=== PATIENT | female | born 1995 | race Caucasian/White ===

== ENCOUNTER → 2020-09-08 09:42 | Outpatient (CLI) | payer OTHER, MEDICAID, SELFPAY ==
[2020-09-08 11:07] LABS: Absolute Lymphocyte Count 2.94 X10^3/uL (0.83-4.51); Absolute Neutrophil Count 6.3 X10^3/uL (2.0-7.7); Basophil# 0.02 X10^3/uL; Basophil% 0.2 % (0-1); Eosinophil# 0.12 X10^3/uL; Eosinophils% 1.2 % (0-5); Hematocrit 42.7 % (37-47); Hemoglobin 14.3 g/dL (12.0-15.0); Lymphocyte # 2.94 X10^3/ul (0.83-4.51); Lymphocyte % 28.9 % (19-41); Mean Corp Hgb Conc 33.5 g/dL (32-36); Mean Corpuscular Hgb 27.1 pg (27.0-32.0); Mean Platelet Vol. 9.6 fl (6.2-12.0); Monocyte# 0.72 X10^3/uL; Monocyte% 7.1 % (0-10); NRBC Flagged by Analyzer 0 % (0-5); Neutrophil # 6.33 X10^3/uL (2.7-7.7); Neutrophil % 62.2 % (47-70); Platelet Count 295 K/mm3 (150-450); RBC Distribution Width CV 13.6 % (11.6-14.6); RBC Distribution Width SD 39.6 fl (35.1-43.9); Red Blood Count 5.27 M/mm3 (4.2-5.4); White Blood Count 10.2 K/mm3 (4.4-11.0)
[2020-09-08 11:53] LABS: HIV - WCH Non-Reactive (Nonreactive); Hepatitis B Surface Antigen Non-Reactive (Nonreactive); Hepatitis C Antibody Non-Reactive (Nonreactive); Rubella IgG Reactive (Nonreactive); Syphilis Antibodies Non-reactive
[2020-09-10 05:07] LABS: Chlamydia By Nucleic Acid AMP Negative (Negative)
[2020-09-10 07:36] LABS: Gonococcus By Nucleic Acid AMP Negative (Negative)
[2020-09-10 16:42] LABS: HPV APTIMA, High Risk Negative (Negative)
[2020-09-10 16:43] LABS: HPV Reflexed? YES, CHARGE PATIENT
== END ==
PROVIDERS: Visit Provider Obstetrics & Gynecology
DX: Z12.4 Encounter for screening for malignant neoplasm of cervix (principal); Z11.3 Encounter for screening for infections with a predominantly sexual mode of transmission; Z32.01 Encounter for pregnancy test, result positive; Z34.81 Encounter for supervision of other normal pregnancy, first trimester
CPT/HCPCS: 36415; 85025; 86703; 86762; 86780; 86803; 87086; 87088; 87340; 87491; 87591; 87624; 88175; G0145

== ENCOUNTER → 2021-01-25 13:18 | Outpatient (CLI) | payer OTHER, MEDICAID, SELFPAY ==
[2021-01-25 15:25] LABS: Hematocrit 37.1 % (37-47); Hemoglobin 12.2 g/dL (12.0-15.0); Mean Corp Hgb Conc 32.9 g/dL (32-36); Mean Corpuscular Hgb 28.2 pg (27.0-32.0); Mean Corpuscular Volume 85.7 fL (81-99); Mean Platelet Vol. 10.4 fl (6.2-12.0); Platelet Count 272 K/mm3 (150-450); RBC Distribution Width CV 14.9 % (11.6-14.6); RBC Distribution Width SD 46.8 fl (35.1-43.9); Red Blood Count 4.33 M/mm3 (4.2-5.4)
[2021-01-25 15:36] LABS: Glucose Challenge Gest 1H 50g 69 mg/dL (70-140)
== END ==
PROVIDERS: Visit Provider Obstetrics & Gynecology
DX: Z34.82 Encounter for supervision of other normal pregnancy, second trimester (principal); R30.0 Dysuria
CPT/HCPCS: 36415; 82950; 85027; 87086; 87088

== ENCOUNTER 2021-04-12 14:40 | Outpatient (CLI) | payer OTHER, MEDICAID, SELFPAY | END 2021-04-12 23:59 | disposition home or self-care (01) | LOC: LABSPEC 14:43 | PROVIDERS: Visit Provider Obstetrics & Gynecology | DX: Z36.85 Encounter for antenatal screening for Streptococcus B (principal) | CPT/HCPCS: 87081 ==

== ENCOUNTER 2021-04-26 14:15 | Observation (INO) | payer OTHER, MEDICAID, SELFPAY ==
[2021-04-26] VITALS (9 sets, daily range): BP systolic 119–153; BP diastolic 75–92; PULSE 91–121; TEMP 36.7–37.2; O2SAT 96–98; BMI 31.4
[2021-04-26] MEDS: Lactated Ringers 1,000 ML 50 ML IV (15:20)
[2021-04-26 15:47] LABS: Absolute Lymphocyte Count 2.25 X10^3/uL (0.83-4.51); Absolute Neutrophil Count 7.5 X10^3/uL (2.0-7.7); Basophil# 0.02 X10^3/uL; Basophil% 0.2 % (0-1); Eosinophil# 0.15 X10^3/uL; Eosinophils% 1.4 % (0-5); Hemoglobin 11.4 g/dL (12.0-15.0); Lymphocyte # 2.25 X10^3/ul (0.83-4.51); Lymphocyte % 20.7 % (19-41); Mean Corp Hgb Conc 33.5 g/dL (32-36); Mean Corpuscular Hgb 25.6 pg (27.0-32.0); Mean Corpuscular Volume 76.2 fL (81-99); Mean Platelet Vol. 10.8 fl (6.2-12.0); Monocyte# 0.88 X10^3/uL; Monocyte% 8.1 % (0-10); NRBC Flagged by Analyzer 0 % (0-5); Neutrophil # 7.47 X10^3/uL (2.7-7.7); Neutrophil % 68.6 % (47-70); Platelet Count 259 K/mm3 (150-450); RBC Distribution Width CV 13.2 % (11.6-14.6); RBC Distribution Width SD 36.4 fl (35.1-43.9); Red Blood Count 4.46 M/mm3 (4.2-5.4); White Blood Count 10.9 K/mm3 (4.4-11.0)
[2021-04-26] MEDS: miSOPROStol 25 MCG TABLET VAGINAL ×2 (17:03→21:20)
--- NOTE | 2021-04-26 17:08 | PCM.HP.BLA ---
History and Physical Date of Admission: 04/26/21 Chief complaint: Gestational hypertension History of present illness: 25-year-old G1, P0 at 38 weeks and 4 days with KELLY: 05/07/2019 2 x 7-week ultrasound arrives for induction of labor for gestational hypertension. Denies headache, visual changes, chest pain, shortness of breath, nausea vomiting, right upper quadrant pain. Patient states good movement. Obstetric history: G1: Current Past medical history: None Medications: vitamin Past surgical history: [employer] tooth extraction, left wrist Allergies: Penicillin Social history: Denies smoking, alcohol use, drug use Family history: Denies history DVT or PE Review of systems: Besides above pertinent positives a full review of systems was performed and found to be negative Physical exam: Vital signs: Blood pressure 121/76 pulse 96 temp 98.1 Fahrenheit General: Normal-appearing no acute distress HEENT: Normocephalic/atraumatic no cervical adenopathy Cardiac/respiratory: No use of excess muscles, nonlabored breathing Abdomen: Soft, nontender, gravid Extremities: No peripheral edema normal peripheral pulses Psych: Normal affect normal demeanor nonpressured speech Labs: White blood cell count 10.9 hemoglobin 11.4 hematocrit 34.0% platelets 259. A positive antibody negative Assessment plan: 25-year-old G1, P0 at 38 weeks and 4 days with for induction of labor for gestational hypertension Admit labor and delivery CEFM GBS negative Cytotec induction Gestational hypertension: Blood pressures nonsevere range, asymptomatic. HELLP labs pending. We will continue to monitor Anesthesia to see
[2021-04-26 17:11] LABS: ALB/GLOB Ratio 0.6 RATIO (0.9-2.4); AST(SGOT) 16 U/L (15-37); Alanine Aminotransfer ALT/SGPT 12 U/L (13-56); Albumin, Serum 2.5 g/dL (3.2-5.0); Alkaline Phosphatase 179 U/L (45-117); Anion Gap 6 (5-15); BUN 7 mg/dL (7-18); BUN/Creat Ratio 10.1 RATIO (10-20); Calcium,Total 8.7 mg/dL (8.5-10.1); Chloride 109 mmol/L (98-107); EST Glomerular Filtration Rate 111 mL/min (>60); Est Glom Filt Rate - Afr Amer 134 mL/min (>60); Estimated Creatinine Clearance 121.55 ml/min; Globulin 4.1 g/dL (2.2-4.2); Glucose 102 mg/dL (74-106); LDH 218 U/L (84-246); Potassium 3.5 mmol/L (3.5-5.1); Protein, Total 6.6 g/dL (6.4-8.2); Sodium Level 137 mmol/L (136-145)
[2021-04-26 17:40] LABS: Mucous, Urine 0 SEEN /hpf (<or=2+); Red Blood Cells-Urine 0 SEEN /hpf (0-5)
[2021-04-26 18:18] LABS: Color, Urine Yellow (Yellow); Glucose, Dipstick Normal (Normal); Ketone-Dipstick Negative (Negative); Leukocyte Esterase-Dipstick 500 /ul (Negative); Nitrite-Dipstick Negative (Negative); Occult Blood-Urine Negative /ul (Negative); Protein, Urine (Random) 21.6 mg/dL (<11.9); Protein-Dipstick 15 mg/dl (Negative); Protein:Creat Ratio 134 mg/g CRE (0-200); Urine Bilirubin Dipstick Negative (Negative); Urine Clarity Cloudy (Clear); Urine Urobilinogen Normal (Normal)
[2021-04-26 18:24] LABS: Bacteria RARE /hpf (None Seen); Squamous Epithelial Cells - UA 10-25 SEEN /hpf (5-10)
[2021-04-26 18:25] LABS: White Blood Cells 0-5 SEEN /hpf (0-5)
[2021-04-26] MEDS: Lactated Ringers 500 ML 999 ML IV ×2 (22:26→23:34)
[2021-04-27] VITALS (33 sets, daily range): BP systolic 100–148; BP diastolic 55–87; PULSE 65–92; TEMP 36.5–37.4; O2SAT 96–99
[2021-04-27] MEDS: Oxytocin 30 units/NS 500 ml 30 UNITS/500 ML IV.SOLN IV (02:45)
[2021-04-27] MEDS: Lactated Ringers 1,000 ML 200 ML IV (04:39)
--- NOTE | 2021-04-27 08:26 | PCM.PN.OB ---
Subjective Subjective No overnight complaints Objective Data Objective Data Vital Signs: Vital Signs Temp Pulse BP Pulse Ox 97.9 F 82 109/56 L 96 04/27/21 07:43 04/27/21 07:44 04/27/21 07:44 04/26/21 21:13 Weight: 200 lb 6.403 oz Body Mass Index (BMI) 31.4 Intake & Output: Intake and Output for Last 24 Hours 04/25/21 04/26/21 04/27/21 23:59 23:59 23:59 Intake Total 558.33 / 558.33 1463.44 / 1463.44 Output Total 950 / 950 Balance 558.33 / 558.33 513.44 / 513.44 Lab / Micro Data Result Diagrams: 04/26/21 15:20 04/26/21 15:20 Labs: Laboratory Results - last 24 hr 04/26/21 15:20: WBC 10.9, RBC 4.46, Hgb 11.4 L, Hct 34.0 L, MCV 76.2 L, MCH 25.6 L, MCHC 33.5, RDW Std Deviation 36.4, RDW Coeff of [place]arr[place] 13.2, Plt Count 259, MPV 10.8, Immature Gran % (Auto) 1.000 H, Neut % (Auto) 68.6, Lymph % (Auto) 20.7, [place] % (Auto) 8.1, Eos % (Auto) 1.4, Baso % (Auto) 0.2, Absolute Neuts (auto) 7.5, Absolute Lymphs (auto) 2.25, Nucleated RBC % 0 04/26/21 15:20: Blood Type A POSITIVE, Antibody Screen NEGATIVE 04/26/21 15:20: Sodium 137, Potassium 3.5, Chloride 109 H, Carbon Dioxide 22.0, Anion Gap 6, BUN 7, Creatinine 0.70, Estim Creat Clear Calc 121.55, Est GFR (MDRD) Af Amer 134, Est GFR (MDRD) Non-Af 111, BUN/Creatinine Ratio 10.1, Glucose 102, Calcium 8.7, Total Bilirubin 0.40, AST 16, ALT 12 L, Alkaline Phosphatase 179 H, Lactate Dehydrogenase 218, Total Protein 6.6, Albumin 2.5 L, Globulin 4.1, Albumin/Globulin Ratio 0.6 L 04/26/21 17:00: Urine Color Yellow, Urine Clarity Cloudy, Urine pH 6.0, Ur Specific [place] 1.020, Urine Protein 15 H, Urine Glucose (UA) Normal, Urine Ketones Negative, Urine Occult Blood Negative, Urine Nitrite Negative, Urine Bilirubin Negative, Urine Urobilinogen Normal, Ur Leukocyte Esterase 500 H, Urine RBC 0 SEEN, Urine WBC 0-5 SEEN, Ur Squamous Epith Cells 10-25 SEEN, Urine Bacteria RARE, Urine Mucus 0 SEEN 04/26/21 17:00: U Random Total Protein 21.6 H, Urine Creatinine 161.00, Protein/Creatinin Ratio 134 Micro: Microbiology 04/26/21 15:27 Nasal Secretion SARS-CoV-2 Antigen (Rapid) - Final Physical Exam Const alert, oriented x3, no apparent distress, average body habitus, healthy appearing and well nourished HEENT normocephalic and moist oral mucous membranes Head and Scalp: atraumatic Face and Sinus: normal facial exam Neck full ROM Resp normal respiratory effort, no retractions and no use of accessory muscles Extremity normal to inspection, full ROM and no clubbing, cyanosis or edema Psych mental status grossly normal, affect normal, speech normal and activity/motor behavior normal Assessment & Plan (1) : PLAN: Patient seen and examined. Initially Cytotec induction, switch to Pitocin. HELLP labs within normal limits. Patient remains asymptomatic. N[place] range blood pressures. We will continue current management
[2021-04-27] MEDS: Lactated Ringers 1,000 ML 50 ML IV (09:45)
--- NOTE | 2021-04-27 12:47 | PN.OBGYN_ITS ---
Subjective Subjective No complaints. Denies headache, visual changes, chest pain, shortness of breath, nausea vomiting, right upper quadrant pain Objective Data Objective Data Vital Signs: Vital Signs Temp Pulse BP Pulse Ox 97.9 F 65 131/74 H 96 04/27/21 12:09 04/27/21 12:10 04/27/21 12:10 04/27/21 11:00 Weight: 200 lb 6.403 oz Body Mass Index (BMI) 31.4 Intake & Output: Intake and Output for Last 24 Hours 04/25/21 04/26/21 04/27/21 23:59 23:59 23:59 Intake Total 558.33 / 558.33 3135.44 / 3135.44 Output Total 2200 / 2200 Balance 558.33 / 558.33 935.44 / 935.44 Lab / Micro Data Result Diagrams: 04/26/21 15:20 04/26/21 15:20 Labs: Laboratory Results - last 24 hr 04/26/21 15:20: WBC 10.9, RBC 4.46, Hgb 11.4 L, Hct 34.0 L, MCV 76.2 L, MCH 25.6 L, MCHC 33.5, RDW Std Deviation 36.4, RDW Coeff of [place]arr[place] 13.2, Plt Count 259, MPV 10.8, Immature Gran % (Auto) 1.000 H, Neut % (Auto) 68.6, Lymph % (Auto) 20.7, [place] % (Auto) 8.1, Eos % (Auto) 1.4, Baso % (Auto) 0.2, Absolute Neuts (auto) 7.5, Absolute Lymphs (auto) 2.25, Nucleated RBC % 0 04/26/21 15:20: Blood Type A POSITIVE, Antibody Screen NEGATIVE 04/26/21 15:20: Sodium 137, Potassium 3.5, Chloride 109 H, Carbon Dioxide 22.0, Anion Gap 6, BUN 7, Creatinine 0.70, Estim Creat Clear Calc 121.55, Est GFR (MDRD) Af Amer 134, Est GFR (MDRD) Non-Af 111, BUN/Creatinine Ratio 10.1, Glucose 102, Calcium 8.7, Total Bilirubin 0.40, AST 16, ALT 12 L, Alkaline Phosphatase 179 H, Lactate Dehydrogenase 218, Total Protein 6.6, Albumin 2.5 L, Globulin 4.1, Albumin/Globulin Ratio 0.6 L 04/26/21 17:00: Urine Color Yellow, Urine Clarity Cloudy, Urine pH 6.0, Ur Specific [place] 1.020, Urine Protein 15 H, Urine Glucose (UA) Normal, Urine Ketones Negative, Urine Occult Blood Negative, Urine Nitrite Negative, Urine Bilirubin Negative, Urine Urobilinogen Normal, Ur Leukocyte Esterase 500 H, Urine RBC 0 SEEN, Urine WBC 0-5 SEEN, Ur Squamous Epith Cells 10-25 SEEN, Urine Bacteria RARE, Urine Mucus 0 SEEN 04/26/21 17:00: U Random Total Protein 21.6 H, Urine Creatinine 161.00, Protein/Creatinin Ratio 134 Micro: Microbiology 04/26/21 15:27 Nasal Secretion SARS-CoV-2 Antigen (Rapid) - Final Physical Exam Const alert, oriented x3, no apparent distress, average body habitus, healthy appearing and well nourished HEENT normocephalic and moist oral mucous membranes Head and Scalp: atraumatic Face and Sinus: normal facial exam Eyes PERRL Neck full ROM Resp normal respiratory effort, no retractions and no use of accessory muscles Narrative: Cervical exam: Closed thick and high Extremity normal to inspection, full ROM and no clubbing, cyanosis or edema Psych mental status grossly normal, affect normal, speech normal and activity/motor behavior normal Assessment & Plan (1) : PLAN: Patient seen and examined. Cervix not amenable to Perez bulb. We we will give Pitocin break and restart Pitocin
--- NOTE | 2021-04-27 17:00 | PN.OBGYN_ITS ---
Subjective Subjective No complaints Objective Data Objective Data Vital Signs: Vital Signs Temp Pulse BP Pulse Ox 99.0 F 78 130/66 H 99 04/27/21 16:45 04/27/21 16:46 04/27/21 16:46 04/27/21 16:45 Weight: 200 lb 6.403 oz Body Mass Index (BMI) 31.4 Intake & Output: Intake and Output for Last 24 Hours 04/25/21 04/26/21 04/27/21 23:59 23:59 23:59 Intake Total 558.33 / 558.33 3717.57 / 3717.57 Output Total 2400 / 2400 Balance 558.33 / 558.33 1317.57 / 1317.57 Lab / Micro Data Result Diagrams: 04/26/21 15:20 04/26/21 15:20 Labs: Laboratory Results - last 24 hr 04/26/21 15:20: Sodium 137, Potassium 3.5, Chloride 109 H, Carbon Dioxide 22.0, Anion Gap 6, BUN 7, Creatinine 0.70, Estim Creat Clear Calc 121.55, Est GFR (MDRD) Af Amer 134, Est GFR (MDRD) Non-Af 111, BUN/Creatinine Ratio 10.1, Glucose 102, Calcium 8.7, Total Bilirubin 0.40, AST 16, ALT 12 L, Alkaline Phosphatase 179 H, Lactate Dehydrogenase 218, Total Protein 6.6, Albumin 2.5 L, Globulin 4.1, Albumin/Globulin Ratio 0.6 L 04/26/21 17:00: Urine Color Yellow, Urine Clarity Cloudy, Urine pH 6.0, Ur Specific [place] 1.020, Urine Protein 15 H, Urine Glucose (UA) Normal, Urine Ketones Negative, Urine Occult Blood Negative, Urine Nitrite Negative, Urine Bilirubin Negative, Urine Urobilinogen Normal, Ur Leukocyte Esterase 500 H, Urine RBC 0 SEEN, Urine WBC 0-5 SEEN, Ur Squamous Epith Cells 10-25 SEEN, Urine Bacteria RARE, Urine Mucus 0 SEEN 04/26/21 17:00: U Random Total Protein 21.6 H, Urine Creatinine 161.00, Protein/Creatinin Ratio 134 Micro: Microbiology 04/26/21 15:27 Nasal Secretion SARS-CoV-2 Antigen (Rapid) - Final Physical Exam Const alert, oriented x3, no apparent distress, average body habitus, healthy appearing and well nourished HEENT normocephalic and moist oral mucous membranes Head and Scalp: atraumatic Face and Sinus: normal facial exam Neck full ROM Resp normal respiratory effort, no retractions and no use of accessory muscles Extremity normal to inspection, full ROM and no clubbing, cyanosis or edema Psych mental status grossly normal, affect normal, speech normal and activity/motor behavior normal Assessment & Plan (1) : PLAN: Patient seen and examined. Restarted Pitocin, patient feeling increased contractions. We will continue current management
[2021-04-27] MEDS: 0.9% Normal Saline Single 100 ML IV.SOLN. INTRA-UTER (19:25)
--- NOTE | 2021-04-27 19:27 | PCM.PN.OB ---
Subjective Subjective Reports mild contractions. denies headache, vision changes, shortness of breath or upper abdominal pain. Objective Data Objective Data Vital Signs: Vital Signs Temp Pulse BP Pulse Ox 98.6 F 84 128/79 H 99 04/27/21 17:58 04/27/21 17:58 04/27/21 17:58 04/27/21 16:45 Weight: 90.9 kg Body Mass Index (BMI) 31.4 Intake & Output: Intake and Output for Last 24 Hours 04/25/21 04/26/21 04/27/21 23:59 23:59 23:59 Intake Total 558.33 / 558.33 3727.44 / 3727.44 Output Total 2400 / 2400 Balance 558.33 / 558.33 1327.44 / 1327.44 Lab / Micro Data Result Diagrams: 04/26/21 15:20 04/26/21 15:20 Micro: Microbiology 04/26/21 15:27 Nasal Secretion SARS-CoV-2 Antigen (Rapid) - Final Physical Exam Narrative GEN - NAD, AAOx 3 FHr 130, moderate variability, + accelerations, no decelerations TOCO 3/10 min SVE 1/50/-5, soft, posterior Assessment & Plan (1) Gestational HTN: QUALIFIERS: Trimester: third trimester Qualified Code(s): O13.3 - Gestational [-induced] hypertension without significant proteinuria, third trimester PLAN: no si/sx worsening (2) : QUALIFIERS: Weeks of gestation: 38 weeks Qualified Code(s): Z3A.38 - 38 weeks gestation of PLAN: Perez bulb placed Continue pitocin as tolerated by mother and fetus Cat I FHR
[2021-04-28] VITALS (24 sets, daily range): BP systolic 97–134; BP diastolic 54–77; PULSE 76–118; TEMP 36.7–38.1; O2SAT 96–100
[2021-04-28] MEDS: 0.9% Saline Lock 10 ML Syringe IV ×2 (04:00→06:56)
[2021-04-28] MEDS: fentaNYL 100 MCG/2 ML Ampul IV ×2 (04:01→06:56)
[2021-04-28] MEDS: Lactated Ringers 1,000 ML 50 ML IV (04:18)
--- NOTE | 2021-04-28 04:18 | PCM.PN.OB ---
Subjective Subjective Reports contractions intensified. Objective Data Objective Data Vital Signs: Vital Signs Temp Pulse BP Pulse Ox 100.0 F H 90 124/58 H 98 04/28/21 04:09 04/28/21 04:10 04/28/21 04:09 04/28/21 04:10 Weight: 90.9 kg Body Mass Index (BMI) 31.4 Intake & Output: Intake and Output for Last 24 Hours 04/26/21 04/27/21 04/28/21 23:59 23:59 23:59 Intake Total 558.33 / 558.33 3779.44 / 3779.44 927.5 / 927.5 Output Total 2400 / 2400 Balance 558.33 / 558.33 1379.44 / 1379.44 927.5 / 927.5 Lab / Micro Data Result Diagrams: 04/26/21 15:20 04/26/21 15:20 Micro: Microbiology 04/26/21 15:27 Nasal Secretion SARS-CoV-2 Antigen (Rapid) - Final Physical Exam Narrative GEN - NAD, AAO x 3 FHR 130, moderate variability, + accelerations, no decelerations TOCO 4/10 min SVE 2.5/50/-5, soft, POSTERIOR Assessment & Plan (1) Gestational HTN: QUALIFIERS: Trimester: third trimester Qualified Code(s): O13.3 - Gestational [-induced] hypertension without significant proteinuria, third trimester (2) : QUALIFIERS: Weeks of gestation: 38 weeks Qualified Code(s): Z3A.38 - 38 weeks gestation of PLAN: SVE unchanged Bedside US confirms cephalic, OP Continue pitocin as tolerated by mother and fetus
[2021-04-28] MEDS: Lactated Ringers 500 ML 999 ML IV (06:58)
[2021-04-28] MEDS: Ondansetron 4 MG/2 ML Vial IV (09:18)
[2021-04-28] MEDS: miSOPROStol 25 MCG TABLET VAGINAL ×2 (10:45→14:36)
[2021-04-28] MEDS: Acetaminophen 500 MG Tablet PO (19:26)
--- NOTE | 2021-04-29 09:01 | PCM.PN.OB ---
Subjective Subjective Note for 04/28/21 PM: Pt with normal blood pressures since coming to L and D 2 days ago. Despite cytotec, then pitocin, then delacruz catheter (not completely inserted), and then cytotec again for >8 hours, cervix remains closed/50/high with external os 2.5 cm. No fevers or evidence infection. Reactive NST. Discussed restarting pitocin after cytotec and pt strongly desires being discharged home given BPs have remained normal throughout her stay for 2 days and no cervical change. Discharged with pt instructed to come to office tomorrow for PNV. To return if leaking fluid or active labor ensues. Recommended modified bedrest until seen. Objective Data Objective Data Vital Signs: Vital Signs Temp Pulse BP Pulse Ox 99.1 F 103 H 133/71 H 100 04/28/21 18:20 04/28/21 18:21 04/28/21 18:21 04/28/21 16:35 Weight: 200 lb 6.403 oz Body Mass Index (BMI) 31.4 Intake & Output: Intake and Output for Last 24 Hours 04/27/21 04/28/21 04/29/21 23:59 23:59 23:59 Intake Total 3792.27 / 3792.27 1743.56 / 1743.56 Output Total 2400 / 2400 Balance 1392.27 / 1392.27 1743.56 / 1743.56 Lab / Micro Data Result Diagrams: 04/26/21 15:20 04/26/21 15:20 Micro: Microbiology 04/26/21 15:27 Nasal Secretion SARS-CoV-2 Antigen (Rapid) - Final
== END 2021-04-28 19:30 | disposition home or self-care (01) ==
PROVIDERS: Obstetrics & Gynecology; Admitting Provider Student in an Organized Health Care Education/Training Program; Visit Provider Student in an Organized Health Care Education/Training Program
DX: O13.3 Gestational [pregnancy-induced] hypertension without significant proteinuria, third trimester (principal); Z3A.38 38 weeks gestation of pregnancy; O61.0 Failed medical induction of labor
CPT/HCPCS: 96361; 96365; 96366 ×2; 96375; 96376; 36415; 59025; 59050; 80053; 81001; 82570; 83615; 84156; 85025; 86850; 86900; 86901; 87426; 99218; J7120; A4216; G0378; J2405

== ENCOUNTER 2021-04-29 14:30 | Inpatient (IN) | payer OTHER, MEDICAID, SELFPAY ==
[2021-04-29] VITALS (49 sets, daily range): BP systolic 107–143; BP diastolic 53–100; PULSE 88–119; TEMP 36.7–38.4; O2SAT 90–100; BMI 31.1
[2021-04-29] MEDS: Lactated Ringers 500 ML 999 ML IV ×3 (15:05→23:36)
[2021-04-29 15:22] LABS: Absolute Lymphocyte Count 1.77 X10^3/uL (0.83-4.51); Absolute Neutrophil Count 31.9 X10^3/uL (2.0-7.7); Basophil# 0.07 X10^3/uL; Basophil% 0.2 % (0-1); Hematocrit 37.5 % (37-47); Hemoglobin 12.1 g/dL (12.0-15.0); Lymphocyte # 1.77 X10^3/ul (0.83-4.51); Lymphocyte % 4.8 % (19-41); Mean Corp Hgb Conc 32.3 g/dL (32-36); Mean Corpuscular Hgb 25.2 pg (27.0-32.0); Mean Corpuscular Volume 78.1 fL (81-99); Mean Platelet Vol. 10.8 fl (6.2-12.0); Monocyte# 2.52 X10^3/uL; Monocyte% 6.8 % (0-10); NRBC Flagged by Analyzer 0 % (0-5); Neutrophil # 31.87 X10^3/uL (2.7-7.7); Neutrophil % 85.6 % (47-70); POSITIVE COUNT YES; POSITIVE DIFFERENTIAL YES; Platelet Count 266 K/mm3 (150-450); RBC Distribution Width CV 13.6 % (11.6-14.6); RBC Distribution Width SD 38.3 fl (35.1-43.9)
[2021-04-29 15:25] LABS: Differential Indicated SCAN CRITERIA MET; White Blood Count 37.2 K/mm3 (4.4-11.0)
[2021-04-29] MEDS: Lactated Ringers 1,000 ML 50 ML IV (15:25)
[2021-04-29 15:48] LABS: Differential Comment SCANNED
[2021-04-29] MEDS: fentaNYL-bupivacaine (epidural) 100 ML BAG EPIDURAL ×2 (16:26→21:07)
--- NOTE | 2021-04-29 18:08 | PCM.HP.BLA ---
History and Physical Date of Admission: 04/29/21 Chief complaint: Contractions History of present illness: 25-year-old G1, P0 at 39 weeks and 0 days with KELLY: 05/06/2021 by 7-week ultrasound arrives in labor. Denies headache, visual changes, chest pain, shortness of breath, nausea vomit, right upper quadrant pain. Patient states good movement. complicated by gestational hypertension Obstetrical history: G1: Current Past medical history: None Medications: vitamin Past surgical history: [place] teeth extraction, left wrist Allergies: Penicillin Social history: Denies smoking, alcohol use, drug use Family history: Denies history DVT or PE Review of systems: Besides above pertinent positives a full review of systems was performed and found to be negative Physical exam: Vitals: Blood pressure 109/63 pulse of 95 temp 99.6 SPO2 100% on room air General: Normal-appearing no acute distress HEENT: Normocephalic atraumatic no cervical of adenopathy Cardiac/respiratory: No use of accessory muscles, nonlabored breathing Abdomen: Soft, nontender, gravid Pelvic exam: 5/70/-1 AROM clear fluid, negative for malodorous discharge Extremities: No peripheral edema normal peripheral pulses Psych: Normal affect normal demeanor nonpressured speech Labs: White blood cell count 37.2 hemoglobin 12.1 hematocrit 37.5% platelets 266. Blood type a positive antibody negative Assessment plan: 25-year-old G1, P0 at 39 weeks 0 days arrives in labor Admit labor and delivery CEFM GBS negative Leukocytosis: Prolonged induction of labor for 3 days, sent home. outside of WBC >16,000, At this time does not meet sepsis criteria(SBP <90, Pulse <110-120, Spo2 <92%). With no fever patient does not meet criteria for suspected chorioamnionitis(fever plus FHT >160 or WBC >16,000 or purulent fluid from cervical os). We will continue to monitor patient signs and symptoms and treat appropriately Gestational pretension: Asymptomatic, nonsevere range blood pressures. We will continue to monitor signs and symptoms
[2021-04-29] MEDS: Lactated Ringers 1,000 ML 200 ML IV (18:35)
[2021-04-29] MEDS: Acetaminophen 500 MG Tablet PO (19:28)
[2021-04-29] MEDS: Mag Hydrox/Al Hydrox/Simeth 30 ML UDC PO (19:29)
[2021-04-29] MEDS: Oxytocin 30 units/NS 500 ml 30 UNITS/500 ML IV.SOLN IV (19:49)
[2021-04-30] VITALS (34 sets, daily range): BP systolic 92–125; BP diastolic 44–80; PULSE 81–127; RESP 12–24; TEMP 36.1–39.9; O2SAT 91–100
[2021-04-30] MEDS: Amnioinfusion- 0.9% NS 1,000 ML IV.SOLN. INTRA-UTER (00:50)
[2021-04-30] MEDS: Ondansetron 4 MG/2 ML Vial IV (01:32)
[2021-04-30] MEDS: Lactated Ringers 1,000 ML 200 ML IV (02:06)
[2021-04-30] MEDS: proCHLORPERazine 10 MG/2 ML Vial IV (02:12)
[2021-04-30] MEDS: Sodium Citrate/Citric Acid 30 ML UDC PO (02:30)
[2021-04-30] MEDS: Lactated Ringers 500 ML 999 ML IV ×3 (02:33→18:29)
[2021-04-30] MEDS: fentaNYL-bupivacaine (epidural) 100 ML BAG EPIDURAL (02:34)
[2021-04-30] MEDS: Clindamycin 900 MG/50 ML BAG 75 MG IV (02:35)
--- NOTE | 2021-04-30 03:05 | PLAC_PTH ---
PATIENT: BESSIE JOYA LOC: [facility] U#:[id number] AGE/SX: 25/ ROOM: WP008 RE04/29/[address]: Dr. Rubio Terrell MD : 1995 BED: 1 DIS: 05/04/2021 SPEC #: [id number] RECD: 04/30/21 10:16 STATUS: KWADWO ELIZABETH #: [id number] GHASSAN: 04/30/21 03:[address]: Rubio Terrell DEPT: SURGICAL PATHOLOGY RECD BY: Alexandria Liu Tissues: Placenta, NOS Procedures: Surgery Specimen Level V HEADER OPERATION: Primary section PRE-OP DIAGNOSIS: 39 weeks gestation, suspected chorio TISSUE SUBMITTED: Placenta MICROSCOPIC DIAGNOSIS Zamora placenta (841 gm): Umbilical cord ? acute funisitis. Placental membranes ? acute chorioamnionitis and acute deciduitis. Placental disc ? two foci of organizing intraparenchymal hemorrhage, acute vasculitis of superficial placental vessels and intravillous congestion. AM:precious 05/04/2021 MICROSCOPIC DESCRIPTION Slides are reviewed. GROSS DESCRIPTION SPECIMEN: PLACENTA / CLINICAL INFORMATION: A. Weight: 4.025 kg B. Gestational Age: 39 weeks C. Sex: Female PLACENTAL WEIGHT (POST FIXATION): 841 gm PLACENTAL DIMENSIONS: 19 x 19 x 7 cm PLACENTAL SHAPE: Usual ovoid PLACENTAL WEIGHT FOR GESTATIONAL AGE: Over 99th percentile MEMBRANES - Present A. Insertion: Marginal B. Site of rupture from edge: 7 cm from edge of placental disc C. Color of membrane: Simon-mathew D. Abnormalities: None UMBILICAL CORD - Present A. Color: Simon-mathew B. Insertion: Paracentral C. Length: 58 cm D. Diameter: 1.5 cm E. Number of vessels: Three F. Abnormalities: None PLACENTAL DISC - Present A. Color of surface: Simon-mathew B. surface abnormalities: None C. Maternal cotyledons: Intact with minimal tears D. Attached retro placental clot: No clot E. Cut surface: Dark red and spongy F. Lesions: Sections reveal two simon, hemorrhagic areas, largest measuring 1.5 and 4 cm in greatest dimension. G. Separate clot: Separate blood clots are noted weighing 25 gm and measuring 7 x 6 x 3 cm. SECTIONS SUBMITTED: 1. Membrane roll 2. Cord, maternal end 3. Cord, end 4. Placental disc, and maternal surfaces, larger hemorrhagic lesion 5. Placental disc, and maternal surfaces, smaller hemorrhagic lesion 6. Placental disc, and maternal surfaces SJ:precious 05/03/2021 TC:2 CPT: 56462
--- NOTE | 2021-04-30 03:39 | PCM.PN.BLA ---
Progress Note Late entry secondary to EMR downtime: Called at 00:56 for OB stat for nonreassuring heart tones prolonged deceleration. Arrived to operating room with heart tones with normal baseline moderate variability. Monitor patient for 15 to 20 minutes. Educated patient on findings of prolonged deceleration and discussed primary section versus expectant management, risk benefits alternatives. Patient elects for expectant management. Reassuring heart tones in OR, moved back to room. Pitocin was kept off, natural contractions with variable decelerations noted and rediscussed with patient for primary section for nonreassuring heart tones. Patient understands risk of the procedure include but are not limited to visceral or vascular injury, prolonged hospitalization, blood loss and need for transfusion, reoperation. Discussed increased risk for infection with suspected chorioamnionitis. Patient state understanding and wished to proceed. All questions were answered and consent was signed. Patient moved back to the operating room for primary section, for clindamycin and azithromycin. We will continue vancomycin and gentamicin. 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
--- NOTE | 2021-04-30 03:43 | EX.PCM.OBRPT ---
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 Normal uterus, tubes, and ovaries Consent: Upon this admission patient initially arrived in labor found to have leukocytosis and proceeded with suspected chorioamnionitis. Called at 00:56 for OB stat for nonreassuring heart tones prolonged deceleration. Arrived to operating room with heart tones with normal baseline moderate variability. Monitor patient for 15 to 20 minutes. Educated patient on findings of prolonged deceleration and discussed primary section versus expectant management, risk benefits alternatives. Patient elects for expectant management. Reassuring heart tones in OR, moved back to room. Pitocin was kept off, natural contractions with variable decelerations noted and rediscussed with patient for primary section for nonreassuring heart tones. Patient understands risk of the procedure include but are not limited to visceral or vascular injury, prolonged hospitalization, blood loss and need for transfusion, reoperation. Discussed increased risk for infection with suspected chorioamnionitis. Patient stated understanding and wished to proceed. All questions were answered and consent was signed. Procedure: Patient was brought back to the OR where epidural anesthesia was on the adequate. Continued vancomycin, gentamicin with the addition of clindamycin and azithromycin for infection prophylaxis. Patient was prepared and draped in a supine position with leftward tilt. A Pfannenstiel incision was made at the skin with a scalpel. The incision was carried down to the fascia with a scalpel. The fascia was excised and extended laterally. Inferior aspect of the fascia was grasped with a clamp and the underlying rectus and pyramidalis muscle was dissected off sharp with Pyle scissors. In a similar fashion the superior aspect of the fascia was grasped with a clamp and the underlying rectus muscle was dissected off sharply. Rectus muscle was dissected at the midline down to the level pubic symphysis. Preperitoneal fatty tissue was noted and peritoneum was entered bluntly. Peritoneum was dissected superiorly and inferiorly with good visualization of bladder. Bladder blade was inserted and vesicouterine peritoneum was identified. Low transverse hysterotomy was made. Hand was placed in the incision and gentle fundal pressure was applied once the head was brought into the incision and the bladder blade was removed. Head and shoulders were delivered with ease. Cord was cut and clamped. They was handed off to nursing. Placenta was delivered via cord traction and fundal massage. IV oxytocin was initiated in order to facilitate uterine contractions. Uterus was exteriorized wiped out with dry laparotomy sponge in order to remove remaining placental membranes. Uterus was closed in a continuous running fashion. Second layer was performed. [id number] sutures were placed for hemostasis. Uterus was placed back into the abdominal cavity and reinspected, FloSeal was placed over the incision. Good hemostasis was noted. Fascia was closed in a continuous running fashion with PDS suture. Subcutaneous irrigation was performed. Skin was closed in a subcutaneous fashion. All counts were correct x2. Patient tolerated procedure well and was brought to recovery in stable condition.
[2021-04-30] MEDS: Oxytocin 30 units/NS 500 ml 30 UNITS/500 ML IV.SOLN 167 UNITS IV (04:05)
--- NOTE | 2021-04-30 04:33 | PCM.RX.CS ---
Consult Pharmacy has been consulted to manage selected antiobiotic: Vancomycin Type of Consult: New start Goal Trough: 10-15 mcg/mL Pharmacy Plan for Drug Dosing: Pharmacy Service will continue to monitor and adjust dosing as required. Medications Vancomycin HCl 1,750 mg/ (Sodium Chloride) 535 mls @ 250 mls/hr IV Q8H BRIT Last Admin: 04/30/21 04:11 Dose: Infused Documented by: Follow-Up Labs: Trough Vancomycin Labs to be done on [date and time ordered]: 04/30 @ 5782
[2021-04-30] MEDS: Ketorolac 30 MG/ML Syringe IV ×4 (05:00→23:06)
[2021-04-30] MEDS: Acetaminophen 500 MG Tablet 1000 MG PO ×4 (05:22→23:55)
--- NOTE | 2021-04-30 05:58 | NURSING ---
epidural catheter removed easily per this RN. Blue tip intact.
[2021-04-30] MEDS: Lactated Ringers 1,000 ML 100 ML IV (07:04)
--- NOTE | 2021-04-30 08:17 | PN.OBGYN_ITS ---
Subjective Subjective No complaints. Denies chest pain, shortness of breath Objective Data Objective Data Vital Signs: Vital Signs Temp Pulse Resp BP Pulse Ox 97.9 F 107 H 14 107/65 97 04/30/21 08:09 04/30/21 08:09 04/30/21 08:09 04/30/21 08:09 04/30/21 08:09 Oxygen Delivery Method Room Air Weight: 199 lb 4.766 oz Body Mass Index (BMI) 31.1 Intake & Output: Intake and Output for Last 24 Hours 04/28/21 04/29/21 04/30/21 23:59 23:59 23:59 Intake Total 2224.73 / 2224.73 3292.27 / 3292.27 Output Total 500 / 1200 2550 / 2550 Balance 1724.73 / 1024.73 742.27 / 742.27 Lab / Micro Data Result Diagrams: 04/29/21 15:05 Labs: Laboratory Results - last 24 hr 04/29/21 15:05: WBC 37.2 H*, RBC 4.80, Hgb 12.1, Hct 37.5, MCV 78.1 L, MCH 25.2 L, MCHC 32.3, RDW Std Deviation 38.3, RDW Coeff of Darrion 13.6, Plt Count 266, MPV 10.8, Immature Gran % (Auto) 2.600 H, Neut % (Auto) 85.6 H, Lymph % (Auto) 4.8 L , [place] % (Auto) 6.8, Eos % (Auto) 0.0, Baso % (Auto) 0.2, Absolute Neuts (auto) 31.9 H, Absolute Lymphs (auto) 1.77, Nucleated RBC % 0, Differential Comment SCANNED, Diff Path Review June04/29/21 15:05: Blood Type A POSITIVE, Antibody Screen NEGATIVE Physical Exam Const alert, oriented x3, no apparent distress, average body habitus, healthy appearing and well nourished HEENT normocephalic and moist oral mucous membranes Head and Scalp: atraumatic Face and Sinus: normal facial exam Neck full ROM Resp normal respiratory effort, no retractions and no use of accessory muscles Extremity normal to inspection, full ROM and no clubbing, cyanosis or edema Psych mental status grossly normal, affect normal, speech normal and activity/motor behavior normal Assessment & Plan (1) : QUALIFIERS: Weeks of gestation: 38 weeks Qualified Code(s): Z3A.38 - 38 weeks gestation of PLAN: Postop day 0 status post primary section for nonreassuring heart tones. Patient with suspected chorioamnionitis continue vancomycin, gentamicin, clindamycin.
[2021-04-30] MEDS: Clindamycin 900 MG/50 ML BAG 150 MG IV ×2 (10:09→18:23)
[2021-04-30] MEDS: Senna/Docusate Sodium 1 Tablet PO (11:07)
[2021-04-30 12:20] LABS: Pathologist Review Reviewed
[2021-04-30] MEDS: Enoxaparin 40 MG/0.4 ML Syringe SC (16:22)
--- NOTE | 2021-04-30 16:43 | PCM.PN.OB ---
Subjective Subjective No complaints. Denies headache, visual changes, chest pain, shortness of breath Objective Data Objective Data Vital Signs: Vital Signs Temp Pulse Resp BP Pulse Ox 100.1 F H 114 H 16 102/57 L 97 04/30/21 16:07 04/30/21 16:07 04/30/21 16:07 04/30/21 16:07 04/30/21 16:07 Oxygen Delivery Method Room Air Weight: 199 lb 4.766 oz Body Mass Index (BMI) 31.1 Intake & Output: Intake and Output for Last 24 Hours 04/28/21 04/29/21 04/30/21 23:59 23:59 23:59 Intake Total 2224.73 / 2224.73 3650.61 / 3650.61 Output Total 500 / 1200 2550 / 2550 Balance 1724.73 / 1024.73 1100.61 / 1100.61 Lab / Micro Data Result Diagrams: 04/29/21 15:05 Labs: Laboratory Results - last 24 hr 04/29/21 15:05: Diff Path Review Reviewed Physical Exam Const alert, oriented x3, no apparent distress, average body habitus, healthy appearing and well nourished HEENT normocephalic and moist oral mucous membranes Head and Scalp: atraumatic Face and Sinus: normal facial exam Eyes PERRL Neck full ROM Resp normal respiratory effort, no retractions and no use of accessory muscles GI GI Narrative: Soft, nontender, uterus firm and below umbilicus Extremity normal to inspection, full ROM and no clubbing, cyanosis or edema Psych mental status grossly normal, affect normal, speech normal and activity/motor behavior normal Assessment & Plan (1) delivery delivered: PLAN: Patient seen and examined, suspected chorioamnionitis. We will continue Vanco, gent, clindamycin. Will give IV fluid bolus 500 cc and LR at 120cc
[2021-04-30] MEDS: Lactated Ringers 1,000 ML 150 ML IV (17:45)
--- NOTE | 2021-04-30 17:45 | PCM.PN.OB ---
Subjective Subjective Called to see patient for fever of 103+ now 102+ after Tylenol. Patient with primary section this a.m. with suspected chorioamnionitis already started on clindamycin, gentamicin, and vancomycin. Patient is also slightly more tachycardic than she was previously in the day but still only in the 120s. Urine output has been good although the Perez catheter was discontinued about 1 PM today. She has been on 100 cc/hr of fluid since her section with a recent 500 cc bolus. Examination shows the patient to be resting comfortably without any evidence of distress. She indicates that she has no pain except in the area of in her incision and just above. She denies any nausea, vomiting, shortness of breath. Examination shows the patient to have lungs which are clear to auscultation x2 and regular rate and rhythm of her heart with mild tachycardia. Abdomen is nondistended with mild to moderate tenderness just below the umbilicus over the uterus. Wound is without seepage with bandage in place and minimal vaginal bleeding is noted. Objective Data Objective Data Vital Signs: Vital Signs Temp Pulse Resp BP Pulse Ox 102.9 F H 124 H 18 102/57 L 95 04/30/21 17:24 04/30/21 17:21 04/30/21 17:21 04/30/21 16:07 04/30/21 17:21 Oxygen Delivery Method Room Air Weight: 199 lb 4.766 oz Body Mass Index (BMI) 31.1 Intake & Output: Intake and Output for Last 24 Hours 04/28/21 04/29/21 04/30/21 23:59 23:59 23:59 Intake Total 2224.73 / 2224.73 4185.61 / 4185.61 Output Total 500 / 1200 2550 / 2550 Balance 1724.73 / 1024.73 1635.61 / 1635.61 Lab / Micro Data Result Diagrams: 04/29/21 15:05 Labs: Laboratory Results - last 24 hr 04/29/21 15:05: Diff Path Review Reviewed Assessment & Plan (1) Chorioamnionitis, delivered, current hospitalization: PLAN: We will continue current triple antibiotics. Will also check CBC with a differential, BMP, lactic acid, and blood cultures. We will give another 500 cc fluid bolus. Patient has Tylenol. If she is unable to void will reinsert Perez catheter. Will monitor blood pressures and urine output closely and if any worsening of her condition will consult hospitalist.
[2021-04-30 18:49] LABS: Absolute Lymphocyte Count 1.27 X10^3/uL (0.83-4.51); Absolute Neutrophil Count 16.9 X10^3/uL (2.0-7.7); Basophil# 0.03 X10^3/uL; Basophil% 0.2 % (0-1); Eosinophil# 0.01 X10^3/uL; Eosinophils% 0.1 % (0-5); Hemoglobin 9.1 g/dL (12.0-15.0); Lymphocyte # 1.27 X10^3/ul (0.83-4.51); Lymphocyte % 6.5 % (19-41); Mean Corp Hgb Conc 32.5 g/dL (32-36); Mean Corpuscular Hgb 25.3 pg (27.0-32.0); Mean Corpuscular Volume 77.8 fL (81-99); Mean Platelet Vol. 11.3 fl (6.2-12.0); Monocyte% 5.1 % (0-10); NRBC Flagged by Analyzer 0 % (0-5); Neutrophil # 16.91 X10^3/uL (2.7-7.7); Neutrophil % 86.7 % (47-70); POSITIVE MORPHOLOGY YES; Platelet Count 195 K/mm3 (150-450); RBC Distribution Width CV 13.9 % (11.6-14.6); RBC Distribution Width SD 39.2 fl (35.1-43.9); White Blood Count 19.5 K/mm3 (4.4-11.0)
[2021-04-30 18:51] LABS: Differential Indicated SCAN CRITERIA MET
[2021-04-30 19:04] LABS: Anion Gap 6 (5-15); BUN 7 mg/dL (7-18); BUN/Creat Ratio 10.4 RATIO (10-20); Calcium,Total 8.1 mg/dL (8.5-10.1); Chloride 110 mmol/L (98-107); Creatinine, Serum 0.67 mg/dL (0.55-1.02); EST Glomerular Filtration Rate 115 mL/min (>60); Est Glom Filt Rate - Afr Amer 140 mL/min (>60); Estimated Creatinine Clearance 126.99 ml/min; Glucose 91 mg/dL (74-106); Potassium 3.3 mmol/L (3.5-5.1); Sodium Level 138 mmol/L (136-145)
[2021-04-30 19:17] LABS: Lactic Acid 1.8 mmol/L (0.4-1.9)
[2021-04-30 22:22] LABS: Vancomycin, Trough Level 15.5 ug/mL (5.0-15.0)
--- NOTE | 2021-04-30 23:30 | NURSING ---
Addendum entered by Lauren Mcduffie 04/30/21 23:32: -1. temp at 2145 was 99.3, HR running around 115. Bag of LR with potassium running. Pt complaining of abdominal pain/tenderness and gas pain. Giving scheduled pain meds and PRN Mylicon. Also adivsed pt to try lying on left side to help with gas pain. Dr. Faust aware of plan and in agreement with interventions. will continue to monitor and update Dr. Faust PRN. SG,RN Original Note: Dr. Faust called unit @ 9786 to check on pt. Updated Dr. Faust with pt's assessment findings - uterus firm,
[2021-05-01] VITALS (7 sets, daily range): BP systolic 100–114; BP diastolic 59–73; PULSE 101–120; RESP 16–18; TEMP 36.5–37.6; O2SAT 94–97
--- NOTE | 2021-05-01 00:46 | PCM.RX.CS ---
Consult Pharmacy has been consulted to manage selected antiobiotic: Vancomycin Type of Consult: Follow-up Labs: Sodium 138 mmol/L (136-145) 04/30/21 18:25 Potassium 3.3 mmol/L (3.5-5.1) L 04/30/21 18:25 Chloride 110 mmol/L (98-107) H 04/30/21 18:25 Carbon Dioxide 22.0 mmol/L (21.0-32.0) 04/30/21 18:25 Anion Gap 6 (5-15) 04/30/21 18:25 BUN 7 mg/dL (7-18) 04/30/21 18:25 Creatinine 0.67 mg/dL (0.55-1.02) 04/30/21 18:25 Est GFR (MDRD) Af Amer 140 mL/min (>60) 04/30/21 18:25 Est GFR (MDRD) Non-Af 115 mL/min (>60) 04/30/21 18:25 BUN/Creatinine Ratio 10.4 RATIO (10-20) 04/30/21 18:25 Glucose 91 mg/dL (74-106) 04/30/21 18:25 Vancomycin Trough 15.5 ug/mL (5.0-15.0) H 04/30/21 21:20 Goal Trough: 10-15 mcg/mL Pharmacy Plan for Drug Dosing: Pharmacy Service will continue to monitor and adjust dosing as required. TROUGH 15.5 @ 7HRS. NO CHANGES NOW, FOLLOW UP TROUGH IN 2 DAYS Follow-Up Labs: Trough Vancomycin Labs to be done on [date and time ordered]: 05/01 @ 1495
[2021-05-01] MEDS: Clindamycin 900 MG/50 ML BAG 150 MG IV ×3 (02:33→18:33)
[2021-05-01] MEDS: Ibuprofen 600 MG Tablet PO ×4 (03:31→22:14)
[2021-05-01] MEDS: Lactated Ringers 1,000 ML 150 ML IV ×2 (05:47→12:53)
[2021-05-01] MEDS: Acetaminophen 500 MG Tablet 1000 MG PO ×4 (05:47→23:43)
[2021-05-01 05:53] LABS: Hematocrit 27.8 % (37-47); Hemoglobin 9.2 g/dL (12.0-15.0); Mean Corp Hgb Conc 33.1 g/dL (32-36); Mean Corpuscular Hgb 25.3 pg (27.0-32.0); Mean Corpuscular Volume 76.4 fL (81-99); Mean Platelet Vol. 10.5 fl (6.2-12.0); Platelet Count 184 K/mm3 (150-450); RBC Distribution Width SD 38.6 fl (35.1-43.9); Red Blood Count 3.64 M/mm3 (4.2-5.4); White Blood Count 16.3 K/mm3 (4.4-11.0)
[2021-05-01 06:07] LABS: Anion Gap 4 (5-15); BUN 4 mg/dL (7-18); BUN/Creat Ratio 7.9 RATIO (10-20); Calcium,Total 7.9 mg/dL (8.5-10.1); Chloride 109 mmol/L (98-107); Creatinine, Serum 0.51 mg/dL (0.55-1.02); EST Glomerular Filtration Rate 159 mL/min (>60); Est Glom Filt Rate - Afr Amer 193 mL/min (>60); Estimated Creatinine Clearance 166.83 ml/min; Glucose 81 mg/dL (74-106); Potassium 3.4 mmol/L (3.5-5.1); Sodium Level 139 mmol/L (136-145)
--- NOTE | 2021-05-01 09:34 | PN.OBGYN_ITS ---
Subjective Subjective Patient without complaints. Positive flatus. Tolerating diet well. Still with some uterine tenderness. Fever broke late last evening. Perez catheter was reinserted last evening as well after patient was unable to void. Objective Data Objective Data Vital Signs: Vital Signs Temp Pulse Resp BP Pulse Ox 97.7 F L 112 H 18 106/73 96 05/01/21 08:00 05/01/21 08:00 05/01/21 08:00 05/01/21 08:00 05/01/21 08:00 Oxygen Delivery Method Room Air Weight: 199 lb 4.766 oz Body Mass Index (BMI) 31.1 Intake & Output: Intake and Output for Last 24 Hours 04/29/21 04/30/21 05/01/21 23:59 23:59 23:59 Intake Total 2224.73 / 2224.73 5985.27 / 5985.27 3130 / 3130 Output Total 500 / 1200 4350 / 4350 1250 / 1250 Balance 1724.73 / 1024.73 1635.27 / 1635.27 1880 / 1880 Lab / Micro Data Result Diagrams: 05/01/21 05:45 05/01/21 05:45 Labs: Laboratory Results - last 24 hr 04/29/21 15:05: Diff Path Review Reviewed 04/30/21 18:25: Sodium 138, Potassium 3.3 L, Chloride 110 H, Carbon Dioxide 22.0, Anion Gap 6, BUN 7, Creatinine 0.67, Estim Creat Clear Calc 126.99, Est GFR (MDRD) Af Amer 140, Est GFR (MDRD) Non-Af 115, BUN/Creatinine Ratio 10.4, Glucose 91, Calcium 8.1 L 04/30/21 18:31: WBC 19.5 H, RBC 3.60 L, Hgb 9.1 L, Hct 28.0 L, MCV 77.8 L, MCH 25.3 L, MCHC 32.5, RDW Std Deviation 39.2, RDW Coeff of Darrion 13.9, Plt Count 195, MPV 11.3, Immature Gran % (Auto) 1.400 H, Neut % (Auto) 86.7 H, Lymph % (Auto) 6.5 L, [place] % (Auto) 5.1, Eos % (Auto) 0.1, Baso % (Auto) 0.2, Absolute Neuts (auto) 16.9 H, Absolute Lymphs (auto) 1.27, Nucleated RBC % 0, Differential Comment 04/30/21 18:31: Lactic Acid 1.8 04/30/21 21:20: Vancomycin Trough 15.5 H 05/01/21 05:45: WBC 16.3 H, RBC 3.64 L, Hgb 9.2 L, Hct 27.8 L, MCV 76.4 L, MCH 25.3 L, MCHC 33.1, RDW Std Deviation 38.6, RDW Coeff of Darrion 14.0, Plt Count 184, MPV 10.5 05/01/21 05:45: Sodium 139, Potassium 3.4 L, Chloride 109 H, Carbon Dioxide 26.0 , Anion Gap 4 L, BUN 4 L, Creatinine 0.51 L, Estim Creat Clear Calc 166.83, Est GFR (MDRD) Af Amer 193, Est GFR (MDRD) Non-Af 159, BUN/Creatinine Ratio 7.9 L, Glucose 81, Calcium 7.9 L Assessment & Plan (1) Chorioamnionitis, delivered, current hospitalization: (2) delivery delivered: PLAN: Doing well status post section on postoperative day #1. Chorioamnionitis resolving with triple antibiotics and increased IV fluid. Very mild hypokalemia. We will continue triple antibiotics through tomorrow, discontinue Perez catheter today, and repeat labs tomorrow. Anticipate release day after tomorrow if good progress continues.
[2021-05-01] MEDS: Senna/Docusate Sodium 1 Tablet PO (10:01)
[2021-05-01] MEDS: Enoxaparin 40 MG/0.4 ML Syringe SC (10:01)
[2021-05-01] MEDS: oxyCODONE 5 MG Tablet PO ×3 (12:53→21:27)
--- NOTE | 2021-05-01 18:28 | CASEMGMT ---
Social Work Assessment Labor and Delivery Unit Date of Referral: 05/01/2021 Time of Referral: 10:27 Referred By: Dr. Roby Faust Date of Intervention: 05/01/2021 Time of Intervention: 18:28 Reason for Referral: Mother of baby (MOB) with extensive delivery. High risk for depression. History obtained from: MOB, charting, Father of baby (FOB), nursing staff. Household composition: MOB, FOB and now this infant have a private home together. Patient's parent/guardian status: MOB and FOB have been together for 7 years. was not planned but accepted. This is first infant for both MOB and FOB. Medical History: MOB with history prior to delivering this infant. MOB with induction that resulted in on 04/30/2021. MOB with appropriate care visits. Infant to be named Adam Ambrocio. Infant to follow with KAREEM Quiroz. MOB plans to breast feed . Educational Status: Completed high school. No concerns with comprehension or understanding. Financial Status: Denies concerns. FOB works full-time outside of the home. MOB works full-time outside of the home as well and will have 10 weeks off work. Infant Supplies: MOB reports to have all needed supplies including a car seat and a crib. Childcare/Caregiver(s): MOB plans to be primary caregiver for infant until returning to work and then family will assist with childcare. Transportation: Denies concerns. Programs/Agencies Involved: MOB plans to apply for [facility]. Children Services/Legal Issues: Denies legal issues or concerns. Mental Health History: MOB with history of depression and anxiety. MOB with history of counseling ?a few years ago? but not active counseling services. MOB denies suicidal thoughts, plans, intents, or history of. This social work coordinator able to engage in conversation about depression signs/symptoms with MOB. MOB voiced understanding and to have support from FOB and family if MOB starts to have signs/symptoms. MOB reports to be comfortable reaching out to doctor. Substance Use History: Denies. PHQ9: Did not trigger. Family/Social Stressors: Denies concerns. Support Systems: MOB reports to have support from FOB and family. Depression and Anxiety/Shaken Baby/Safe Sleeping: This social work coordinator provided MOB with information on depression and anxiety as well as safe sleeping, shaken baby and [place] resources. ASSESSMENT: This social work coordinator met with MOB, FOB and infant in room. FOB holding during assessment. This social work coordinator introduced self and social work coordinator role. MOB agreeable to speak with this social work coordinator and provided verbal permission for this social work coordinator to speak openly with FOB present. MOB engaged in assessment. MOB present with a positive affect. MOB reports to be ?ready to go home.? MOB with extended stay in the hospital due to extended labor/delivery process for MOB. This social work coordinator provided active support and listening to MOB. MOB denies concerns on returning to the community. PLAN: to discharge to home with parents. No other services requested or indicated. Adryan PRASAD, KAYLEN
[2021-05-02] VITALS (8 sets, daily range): BP systolic 107–133; BP diastolic 59–81; PULSE 109–128; RESP 16–18; TEMP 36.7–38.6; O2SAT 94–99
[2021-05-02] MEDS: Lactated Ringers 1,000 ML 150 ML IV (00:54)
[2021-05-02] MEDS: Clindamycin 900 MG/50 ML BAG 150 MG IV (01:44)
[2021-05-02] MEDS: oxyCODONE 5 MG Tablet PO ×3 (02:10→17:50)
[2021-05-02] MEDS: Ibuprofen 600 MG Tablet PO ×4 (04:14→22:57)
[2021-05-02 04:47] LABS: Absolute Lymphocyte Count 1.69 X10^3/uL (0.83-4.51); Absolute Neutrophil Count 8.7 X10^3/uL (2.0-7.7); Basophil# 0.04 X10^3/uL; Basophil% 0.3 % (0-1); Eosinophil# 0.24 X10^3/uL; Hematocrit 27.8 % (37-47); Lymphocyte # 1.69 X10^3/ul (0.83-4.51); Lymphocyte % 13.8 % (19-41); Mean Corp Hgb Conc 32.4 g/dL (32-36); Mean Corpuscular Volume 77.2 fL (81-99); Mean Platelet Vol. 10.9 fl (6.2-12.0); Monocyte# 1.26 X10^3/uL; Monocyte% 10.3 % (0-10); NRBC Flagged by Analyzer 0 % (0-5); Neutrophil # 8.67 X10^3/uL (2.7-7.7); Neutrophil % 70.8 % (47-70); Platelet Count 204 K/mm3 (150-450); RBC Distribution Width CV 14.3 % (11.6-14.6); RBC Distribution Width SD 39.8 fl (35.1-43.9); White Blood Count 12.2 K/mm3 (4.4-11.0)
[2021-05-02 05:02] LABS: Anion Gap 5 (5-15); BUN 4 mg/dL (7-18); BUN/Creat Ratio 8.2 RATIO (10-20); Calcium,Total 7.4 mg/dL (8.5-10.1); Chloride 106 mmol/L (98-107); Creatinine, Serum 0.49 mg/dL (0.55-1.02); EST Glomerular Filtration Rate 167 mL/min (>60); Est Glom Filt Rate - Afr Amer 202 mL/min (>60); Estimated Creatinine Clearance 173.64 ml/min; Glucose 85 mg/dL (74-106); Potassium 3.1 mmol/L (3.5-5.1); Sodium Level 138 mmol/L (136-145)
[2021-05-02] MEDS: Acetaminophen 500 MG Tablet 1000 MG PO ×3 (06:12→20:37)
[2021-05-02] MEDS: Senna/Docusate Sodium 1 Tablet PO (10:11)
[2021-05-02] MEDS: Enoxaparin 40 MG/0.4 ML Syringe SC (10:11)
--- NOTE | 2021-05-02 10:43 | PCM.PN.OB ---
Subjective Subjective Patient without complaints. Tolerating diet well. Now bottlefeeding after stopping breast-feeding. Positive flatus. Antibiotics to be stopped this morning. Objective Data Objective Data Vital Signs: Vital Signs Temp Pulse Resp BP Pulse Ox 98.6 F 109 H 16 113/64 96 05/02/21 08:17 05/02/21 08:17 05/02/21 08:17 05/02/21 08:17 05/01/21 20:30 Oxygen Delivery Method Room Air Weight: 199 lb 4.766 oz Body Mass Index (BMI) 31.1 Intake & Output: Intake and Output for Last 24 Hours 04/30/21 05/01/21 05/02/21 23:59 23:59 23:59 Intake Total 5985.27 / 5985.27 5823 / 5823 1120 / 1120 Output Total 4350 / 4350 2800 / 2800 Balance 1635.27 / 1635.27 3023 / 3023 1120 / 1120 Lab / Micro Data Result Diagrams: 05/02/21 04:32 05/02/21 04:32 Labs: Laboratory Results - last 24 hr 05/02/21 04:32: Sodium 138, Potassium 3.1 L, Chloride 106, Carbon Dioxide 27.0, Anion Gap 5, BUN 4 L, Creatinine 0.49 L, Estim Creat Clear Calc 173.64, Est GFR (MDRD) Af Amer 202, Est GFR (MDRD) Non-Af 167, BUN/Creatinine Ratio 8.2 L, Glucose 85, Calcium 7.4 L 05/02/21 04:32: WBC 12.2 H, RBC 3.60 L, Hgb 9.0 L, Hct 27.8 L, MCV 77.2 L, MCH 25.0 L, MCHC 32.4, RDW Std Deviation 39.8, RDW Coeff of Darrion 14.3, Plt Count 204, MPV 10.9, Immature Gran % (Auto) 2.800 H, Neut % (Auto) 70.8 H, Lymph % (Auto) 13.8 L, [place] % (Auto) 10.3 H, Eos % (Auto) 2.0, Baso % (Auto) 0.3, Absolute Neuts (auto) 8.7 H, Absolute Lymphs (auto) 1.69, Nucleated RBC % 0 Assessment & Plan (1) Chorioamnionitis, delivered, current hospitalization: (2) delivery delivered: PLAN: Resolving chorioamnionitis on postoperative day #2 status post section. Antibiotics discontinued this morning. White count continues to drop now normal. Will continue to observe today with possible discharge tomorrow.
[2021-05-02] MEDS: Potassium Chloride Oral Tablet 20 MEQ PO (11:41)
[2021-05-02] MEDS: Cephalexin 500 MG Capsule PO (18:56)
--- NOTE | 2021-05-02 18:59 | NURSING ---
At 1800 pt's temp noted to be 100.3 on the floor and notified, new order given to start Keflex 500mg po three times a day. At 1830 her temp was 101.5. At 1900 the Keflex came to the floor I gave the med not waiting til 2200 when pharmacy put it in to start.
[2021-05-03] MEDS: Acetaminophen 500 MG Tablet 1000 MG PO ×4 (01:13→21:03)
[2021-05-03 01:14] VITALS: BP 114/73; PULSE 90; RESP 24; TEMP 36.4; O2SAT 97
[2021-05-03 04:14] VITALS: TEMP 36.5
[2021-05-03] MEDS: Cephalexin 500 MG Capsule PO ×3 (04:14→22:07)
[2021-05-03] MEDS: Ibuprofen 600 MG Tablet PO ×4 (04:14→23:34)
[2021-05-03 04:30] LABS: Absolute Lymphocyte Count 2.15 X10^3/uL (0.83-4.51); Absolute Neutrophil Count 6.6 X10^3/uL (2.0-7.7); Basophil# 0.04 X10^3/uL; Basophil% 0.4 % (0-1); Eosinophils% 4.5 % (0-5); Hematocrit 26.4 % (37-47); Hemoglobin 8.6 g/dL (12.0-15.0); Lymphocyte # 2.15 X10^3/ul (0.83-4.51); Lymphocyte % 19.5 % (19-41); Mean Corp Hgb Conc 32.6 g/dL (32-36); Mean Corpuscular Volume 76.7 fL (81-99); Mean Platelet Vol. 10.5 fl (6.2-12.0); Monocyte% 12.7 % (0-10); NRBC Flagged by Analyzer 0 % (0-5); Neutrophil # 6.64 X10^3/uL (2.7-7.7); Neutrophil % 60.4 % (47-70); Platelet Count 216 K/mm3 (150-450); RBC Distribution Width CV 14.4 % (11.6-14.6); RBC Distribution Width SD 40.1 fl (35.1-43.9); Red Blood Count 3.44 M/mm3 (4.2-5.4)
[2021-05-03 04:52] LABS: Anion Gap 5 (5-15); Chloride 108 mmol/L (98-107); Potassium 3.3 mmol/L (3.5-5.1); Sodium Level 141 mmol/L (136-145)
--- NOTE | 2021-05-03 07:40 | NURSING ---
bedside report given to Paarm Ramirez RN who is assuming care of pt at this time
[2021-05-03 07:56] VITALS: BP 112/72; PULSE 85; RESP 16; TEMP 36.4; O2SAT 98
--- NOTE | 2021-05-03 08:42 | PN.OBGYN_ITS ---
Subjective Subjective Postop day 3 status post primary section. Tearful in room upon learning she must stay for 1 more night. Has restarted breast-feeding. Has ambulated in [place]. Tolerating diet. Feeling well this morning, no complaints with fever overnight. Objective Data Objective Data Vital Signs: Vital Signs Temp Pulse Resp BP Pulse Ox 97.5 F L 85 16 112/72 98 05/03/21 07:56 05/03/21 07:56 05/03/21 07:56 05/03/21 07:56 05/03/21 07:56 Oxygen Delivery Method Room Air Weight: 90.4 kg Body Mass Index (BMI) 31.1 Intake & Output: Intake and Output for Last 24 Hours 05/01/21 05/02/21 05/03/21 23:59 23:59 23:59 Intake Total 5823 / 5823 2119 / 2119 Output Total 2800 / 2800 Balance 3023 / 3023 2119 / 2119 Lab / Micro Data Result Diagrams: 05/03/21 04:20 05/03/21 04:20 Labs: Laboratory Results - last 24 hr 05/03/21 04:20: Sodium 141, Potassium 3.3 L, Chloride 108 H, Carbon Dioxide 28.0, Anion Gap 5 05/03/21 04:20: WBC 11.0, RBC 3.44 L, Hgb 8.6 L, Hct 26.4 L, MCV 76.7 L, MCH 25.0 L, MCHC 32.6, RDW Std Deviation 40.1, RDW Coeff of Darrion 14.4, Plt Count 216, MPV 10.5, Immature Gran % (Auto) 2.500 H, Neut % (Auto) 60.4, Lymph % (Auto) 19.5, [place] % (Auto) 12.7 H, Eos % (Auto) 4.5, Baso % (Auto) 0.4, Absolute Neuts (auto) 6.6, Absolute Lymphs (auto) 2.15, Nucleated RBC % 0 Physical Exam Const alert, oriented x3 and no apparent distress HEENT normocephalic Head and Scalp: atraumatic Neck full ROM Resp normal respiratory effort and clear to auscultation bilaterally Cardio regular rate GI normal to inspection, nondistended, normoactive bowel sounds GI Narrative: Uterus 2 cm below umbilicus. Dressing clean and dry. Back/Spine normal ROM Extremity normal to inspection Extremity Narrative: +1 pedal edema Neuro no focal motor deficits and no sensory deficits noted Psych mental status grossly normal and affect normal Assessment & Plan (1) Chorioamnionitis, delivered, current hospitalization: PLAN: Postop day 3 status post primary section. Complicated by: Acute blood loss anemia secondary to surgery (iron supplement upon home-going), hypokalemia (20 mEq KCl p.o. today, repeat BMP in morning), and ch orioamnionitis. -Chorioamnionitis: Patient had fever on 05/02 in the evening. She is status post IV antibiotics. She was started on Keflex p.o. last night. Had no symptoms at time of fever other than cheek flushing. Blood cultures are pending from 04/30. Placental pathology pending. Leukocytosis has resolved. Oxygen saturation normal on room air, minimal swelling equal bilateral lower extremities. Patient is not dyspneic. No evidence at this time of VTE or cystitis/pyelonephritis. If patient has further fever today, consider straight cath for urinalysis and urine culture, consider CTA/venous Dopplers of lower extremities. -Strongly encouraged ambulation today multiple times in room and out on floor, incentive spirometry. -GHTN - BPs well controlled. Discharge home: After patient has been 24 hours afebrile. Will need 1 week post op/BP check. (2) delivery delivered: (3) Gestational HTN: QUALIFIERS: Trimester: third trimester Qualified Code(s): O13.3 - Gestational [-induced] hypertension without significant proteinuria, third trimester
[2021-05-03] MEDS: Enoxaparin 40 MG/0.4 ML Syringe SC (10:28)
[2021-05-03] MEDS: Senna/Docusate Sodium 1 Tablet PO (10:28)
[2021-05-03] MEDS: Potassium Chloride Oral Tablet 20 MEQ PO ×2 (10:59→17:18)
[2021-05-03 13:27] VITALS: BP 123/81; PULSE 100; RESP 16; TEMP 36.4; O2SAT 99
--- NOTE | 2021-05-03 18:03 | NURSING ---
1700: Report received from WARNER Shea on mom and baby. WARNER Sarah assuming care at this time
[2021-05-03 21:07] VITALS: BP 124/83; PULSE 99; RESP 16; TEMP 36.7; O2SAT 98
[2021-05-04 02:05] VITALS: BP 114/78; PULSE 93; RESP 15; TEMP 36.9
[2021-05-04] MEDS: oxyCODONE 5 MG Tablet PO (02:07)
[2021-05-04] MEDS: Acetaminophen 500 MG Tablet 1000 MG PO ×2 (02:57→08:39)
[2021-05-04] MEDS: Ibuprofen 600 MG Tablet PO (04:52)
[2021-05-04 05:31] LABS: Absolute Lymphocyte Count 2.26 X10^3/uL (0.83-4.51); Absolute Neutrophil Count 6.8 X10^3/uL (2.0-7.7); Basophil# 0.03 X10^3/uL; Basophil% 0.3 % (0-1); Eosinophil# 0.32 X10^3/uL; Hematocrit 26.5 % (37-47); Hemoglobin 8.3 g/dL (12.0-15.0); Lymphocyte # 2.26 X10^3/ul (0.83-4.51); Lymphocyte % 21.1 % (19-41); Mean Corp Hgb Conc 31.3 g/dL (32-36); Mean Corpuscular Hgb 24.6 pg (27.0-32.0); Mean Corpuscular Volume 78.6 fL (81-99); Mean Platelet Vol. 11.1 fl (6.2-12.0); Monocyte# 1.08 X10^3/uL; Monocyte% 10.1 % (0-10); NRBC Flagged by Analyzer 0 % (0-5); Neutrophil # 6.75 X10^3/uL (2.7-7.7); Neutrophil % 63.2 % (47-70); POSITIVE COUNT YES; Platelet Count 236 K/mm3 (150-450); RBC Distribution Width CV 14.5 % (11.6-14.6); RBC Distribution Width SD 41.1 fl (35.1-43.9); Red Blood Count 3.37 M/mm3 (4.2-5.4); White Blood Count 10.7 K/mm3 (4.4-11.0)
[2021-05-04 05:43] LABS: Differential Indicated SCAN CRITERIA MET
[2021-05-04 05:44] LABS: Anion Gap 8 (5-15); BUN 7 mg/dL (7-18); BUN/Creat Ratio 15.3 RATIO (10-20); Calcium,Total 7.6 mg/dL (8.5-10.1); Chloride 107 mmol/L (98-107); Creatinine, Serum 0.46 mg/dL (0.55-1.02); EST Glomerular Filtration Rate 180 mL/min (>60); Est Glom Filt Rate - Afr Amer 218 mL/min (>60); Estimated Creatinine Clearance 184.97 ml/min; Glucose 80 mg/dL (74-106); Potassium 3.5 mmol/L (3.5-5.1); Sodium Level 140 mmol/L (136-145)
[2021-05-04] MEDS: Cephalexin 500 MG Capsule PO (06:07)
[2021-05-04 06:58] LABS: Differential Comment SCANNED; Platelet Estimate ADEQUATE (ADEQ)
[2021-05-04 08:12] VITALS: BP 123/80; PULSE 86; RESP 14; TEMP 36.7; O2SAT 96
[2021-05-04] MEDS: Potassium Chloride Oral Tablet 20 MEQ PO (08:40)
--- NOTE | 2021-05-04 08:44 | PCM.PN.OB ---
Subjective Subjective Denies headaches, vision changes, chest pain, shortness of breath, cough. No fevers or chills. Pain is well controlled. Objective Data Objective Data Vital Signs: Vital Signs Temp Pulse Resp BP Pulse Ox 98.1 F 86 14 123/80 H 96 05/04/21 08:12 05/04/21 08:12 05/04/21 08:12 05/04/21 08:12 05/04/21 08:12 Oxygen Delivery Method Room Air Weight: 90.4 kg Body Mass Index (BMI) 31.1 Intake & Output: Intake and Output for Last 24 Hours 05/02/21 05/03/21 05/04/21 23:59 23:59 23:59 Intake Total 2119 Balance 2119 Lab / Micro Data Result Diagrams: 05/04/21 05:10 05/04/21 05:10 Labs: Laboratory Results - last 24 hr 05/04/21 05:10: WBC 10.7, RBC 3.37 L, Hgb 8.3 L, Hct 26.5 L, MCV 78.6 L, MCH 24.6 L, MCHC 31.3 L, RDW Std Deviation 41.1, RDW Coeff of Darrion 14.5, Plt Count 236, MPV 11.1, Immature Gran % (Auto) 2.300 H, Neut % (Auto) 63.2, Lymph % (Auto) 21.1, [place] % (Auto) 10.1 H, Eos % (Auto) 3.0, Baso % (Auto) 0.3, Absolute Neuts (auto) 6.8, Absolute Lymphs (auto) 2.26, Nucleated RBC % 0, Differential Comment SCANNED, Platelet Estimate ADEQUATE 05/04/21 05:10: Sodium 140, Potassium 3.5, Chloride 107, Carbon Dioxide 25.0, Anion Gap 8, BUN 7, Creatinine 0.46 L, Estim Creat Clear Calc 184.97, Est GFR (MDRD) Af Amer 218, Est GFR (MDRD) Non-Af 180, BUN/Creatinine Ratio 15.3, Glucose 80, Calcium 7.6 L Physical Exam Const alert, oriented x3 and no apparent distress Resp normal respiratory effort and clear to auscultation bilaterally Resp Narrative: diminished sounds in right lung base Cardio regular rate, regular rhythm, S1 normal heart sound and S2 normal heart sound GI normal to inspection, nondistended, normoactive bowel sounds, soft to palpation, non-tender and non-distended GI Narrative: incisional dressing removed with incision well approximated and nontender without erythema or skin changes. Manual OB Exam: other lochia scant Uterus Palpation: uterus fundus firm Extremity no calf tenderness Assessment & Plan (1) Chorioamnionitis, delivered, current hospitalization: PLAN: Post IV antibiotics Currently on Keflex for recurrent FUO with defervescence > 24h - defer Ucx due to timing Will d/c home today with abx (2) delivery delivered: PLAN: Routine postop care (3) Gestational HTN: QUALIFIERS: Trimester: third trimester Qualified Code(s): O13.3 - Gestational [-induced] hypertension without significant proteinuria, third trimester PLAN: stable, no worsening (4) Anemia: QUALIFIERS: Anemia type: iron deficiency Iron deficiency anemia type: other iron deficiency Qualified Code(s): D50.8 - Other iron deficiency anemias PLAN: Fe supplementation
--- NOTE | 2021-05-04 09:02 | PCM.DC ---
Discharge Instructions Diet Discharge Diet: No restrictions Activity Discharge Activity: Return to Normal Activity and May Shower May resume sexual activity in: 4-6 weeks Lifting Restrictions: 10 lb Dressing / Incision Call your doctor if you observe: Using more than 1 pad per hour, Shortness of breath, Chest pain, Calf discomfort, Uncontrolled pain and - (Persistent or severe headache) Suture Line Care: Avoid Pulling/Pushing Remove Dressing in: 4 days Cleanse incision/area with: Soap & Water Follow Up Care Please Follow Up With: Rubio Terrell MD When: 1 week for incision check 6 weeks for visit Test Results: Test results from this visit will be discussed in further detail at your follow-up appointment, if applicable. Discharge Plan Admission Admit Date/Time: 04/29/21 14:30 Primary Reason for Your Visit: delivery, Infection, Anemia Attending Provider: Rubio Terrell Instructions Patient Instructions: ED Anemia, Iron-Deficiency (Adult) Discharge Orders/Prescriptions Prescriptions: New cephalexin 500 mg Capsule 500 mg PO Q8 Qty: 12 RF: 0 ibuprofen 600 mg Tablet 600 mg PO Q8H PRN PRN (Reason: pain) Qty: 30 RF: 0 oxycodone 5 mg Tablet 5 mg PO Q6H PRN PRN (Reason: pain (scale score 7-10)) 5 Days Qty: 8 RF: 0 ferrous sulfate 324 mg (65 mg iron) tablet,delayed release (DR/EC) 324 mg PO BID Qty: 60 RF: 0 VSL#3 112.5 billion cell capsule 1 cap PO DAILY Qty: 7 RF: 0 Continued + DHA 28 mg iron- 975 mcg-200 mg Combo Pack 1 pkg PO DAILY RF: 0
[2021-05-05 08:13] LABS: Pathology Specimen OB SEE PATHOLOGY REPORT
--- NOTE | 2021-05-15 00:16 | PCM.DC.SUM ---
Providers Date of Admission: 04/29/21 Reason For Visit: LABOR & DELIVERY Diagnosis Discharge Diagnosis (1) Chorioamnionitis, delivered, current hospitalization: Status: Acute Code(s): O41.1290 - Chorioamnionitis, unspecified trimester, not applicable or unspecified (2) delivery delivered: Status: Acute Code(s): O82 - Encounter for delivery without indication (3) Gestational HTN: Status: Acute Code(s): O13.9 - Gestational [-induced] hypertension without significant proteinuria, unspecified trimester Qualifiers: Trimester: third trimester Qualified Code(s): O13.3 - Gestational [-induced] hypertension without significant proteinuria, third trimester (4) Anemia: Status: Acute Code(s): D64.9 - Anemia, unspecified Qualifiers: Anemia type: iron deficiency Iron deficiency anemia type: other iron deficiency Qualified Code(s): D50.8 - Other iron deficiency anemias Medications at Discharge Home Medications + DHA 1 pkg PO DAILY 04/26/21 Lactobac 2-Bifido 1-S. therm [VSL#3] 1 cap PO DAILY #7 cap 05/04/21 cephalexin 500 mg PO Q8 #12 cap 05/04/21 ferrous sulfate 324 mg PO BID #60 tab 05/04/21 ibuprofen 600 mg PO Q8H PRN PRN #30 tab 05/04/21 oxycodone 5 mg PO Q6H PRN PRN 5 Days #8 tab 05/04/21 Hospital Course Operations section Summary of Care Provided Hospital Course: 25yo G1 was admitted in active at 39wga with history of gestational hypertension. She underwent section for chorioamnionitis with non-reassuring heart tones on POD#1. Her postoperative course was complicated by fever. She received IV Ampillin/Gentamicin/Clindamycin. She began to spike fever again after antibiotics were discontinued and she was treated with Keflex with resolution of fever. She was discharged to home on POD#5. Weight / BMI Weight Weight: 90.4 kg Body Mass Index (BMI) 31.1 ABG / Lab / Microbiology Data Result Diagrams: 05/04/21 05:10 05/04/21 05:10 Microbiology: Microbiology 04/30/21 18:31 Blood Culture (Wb) - Anticubital Right Blood Culture - Final No growth in 5 days. 04/30/21 18:22 Blood Culture (Wb) - Left Wrist Blood Culture - Final No growth in 5 days. D/C Instructions Discharge Diet: No restrictions May resume sexual activity in: 4-6 weeks Call your doctor if you observe: Using more than 1 pad per hour, Shortness of breath, Chest pain, Calf discomfort, Uncontrolled pain and - (Persistent or severe headache) Suture Line Care: Avoid Pulling/Pushing Cleanse incision/area with: Soap & Water Please Follow Up With: Rubio Terrell MD When: 1 week for incision check 6 weeks for visit Meaningful Use Info Meaningful Use Diagnoses (Choose all that apply): None applicable Discharge Plan Admission Admit Date/Time: 04/29/21 14:30 Primary Reason for Your Visit: delivery, Infection, Anemia Attending Provider: Rubio Terrell Instructions Forms: Information Patient Instructions: After a , Section (), C Section Dc, ED Anemia, Iron-Deficiency (Adult) Discharge Orders/Prescriptions Prescriptions: New cephalexin 500 mg Capsule 500 mg PO Q8 Qty: 12 RF: 0 ibuprofen 600 mg Tablet 600 mg PO Q8H PRN PRN (Reason: pain) Qty: 30 RF: 0 oxycodone 5 mg Tablet 5 mg PO Q6H PRN PRN (Reason: pain (scale score 7-10)) 5 Days Qty: 8 RF: 0 ferrous sulfate 324 mg (65 mg iron) tablet,delayed release (DR/EC) 324 mg PO BID Qty: 60 RF: 0 VSL#3 112.5 billion cell capsule 1 cap PO DAILY Qty: 7 RF: 0 Continued + DHA 28 mg iron- 975 mcg-200 mg Combo Pack 1 pkg PO DAILY RF: 0 Disposition Disposition (needs filled in before D/C Order can be placed): Home, Self Care
== END 2021-05-04 10:00 | disposition home or self-care (01) | DRG 786 ==
PROVIDERS: Obstetrics & Gynecology; Student in an Organized Health Care Education/Training Program; Admitting Provider Obstetrics & Gynecology; Visit Provider Obstetrics & Gynecology
DX: O76 Abnormality in fetal heart rate and rhythm complicating labor and delivery (principal); O41.1230 Chorioamnionitis, third trimester, not applicable or unspecified; D62 Acute posthemorrhagic anemia; E87.6 Hypokalemia; D50.8 Other iron deficiency anemias; O13.4 Gestational [pregnancy-induced] hypertension without significant proteinuria, complicating childbirth; O99.02 Anemia complicating childbirth; Z37.0 Single live birth; O99.284 Endocrine, nutritional and metabolic diseases complicating childbirth; Z3A.39 39 weeks gestation of pregnancy
CPT/HCPCS: 59025; 59050; 80048; 80051; 80202; 83605; 85025; 85027; 86850; 86900; 86901; 87040; 88307; 99218; J7030; J7040; J7120; G0378; J2405